=== PATIENT | female | born 1990 | race Two or more races ===

== ENCOUNTER 2022-07-10 11:50 | Outpatient (CLI) | payer OTHER | END 2022-07-10 11:51 | disposition home or self-care (01) | LOC: SONOGRAMA 11:50 | PROVIDERS: ATTEND Pathology Anatomic Pathology & Clinical Pathology | DX: E04.2 Nontoxic multinodular goiter (principal); D34 Benign neoplasm of thyroid gland; E04.1 Nontoxic single thyroid nodule ==

== ENCOUNTER 2025-04-25 06:45 | Day surgery (SDC) | payer OTHER ==
[2025-04-25] MEDS ORDERED: fentaNYL CITRATE 50 MCG/ML AMPUL IV PUSH ONE (09:30)
[2025-04-25] MEDS ORDERED: DIPHENHYDRAMINE HCL 50 MG/ML VIAL 1ML IV ONE (09:30)
[2025-04-25] MEDS ORDERED: MIDAZOLAM HCL 2 MG/2 ML VIAL IV ONE (09:30)
== END 2025-04-25 10:25 | disposition home or self-care (01) ==
LOC: AMB-ENDOS 06:45
PROVIDERS: ATTEND Colon & Rectal Surgery
DX: K63.5 Polyp of colon (principal); K62.5 Hemorrhage of anus and rectum; K64.0 First degree hemorrhoids